=== PATIENT | female | born 1935 | race Caucasian/White ===

== ENCOUNTER 2022-03-09 06:34 | Day surgery (SDC) | payer MEDICARE, OTHER ==
[~2022-03-09] VITALS: Ht 170 cm; Wt 106.0 kg
[~2022-03-09 06:34] MED LIST: AMLODIPINE BESY10 MG PO; CARDURA2 MG PO; CHLORTHALIDONE25 MG PO; COLESTIPOL HCL1 GM PO; HUMALOG 75100 UNIT/M SC; LEVOTHYROXINE100 MCG PO; METOPROLOL SUC100 MG PO; TRAMADOL HCL50 MG PO; VITAMIN D3125 MCG PO
[2022-03-09] MEDS ORDERED: DULCOLAX5 MG PO (14:51)
[2022-03-09] MEDS ORDERED: LAXATIVE SUPPOS10 MG PR (14:51)
[2022-03-09] MEDS ORDERED: TAB-A-VITE TA400 MC1 PO (14:51)
[2022-03-09] MEDS ORDERED: SENNOSIDES-DOC1 EACH PO (14:51)
[2022-03-09] MEDS ORDERED: XARELTO10 MG PO (14:51)
[2022-03-09] MEDS ORDERED: FEOSOL325 MG PO (14:51)
[2022-03-09] MEDS ORDERED: MILK OF MA400 MG/5 M PO (14:51)
[2022-03-09] MEDS ORDERED: PANTOPRAZOLE SO40 MG PO (14:51)
[2022-03-10 06:26] LABS: BASOPHIL 0.1 % (0-2); EOSINOPHIL 0 % (0-7); HCT 28.2 % (37.0-47.0); HGB 9.2 g/dl (12.5-16.0); LYMPHOCYTE 8.1 % (15-48); MCH 30.6 pg (25.0-31.0); MCHC 32.6 g/dL (32.0-36.0); MCV 93.7 fL (78.0-100.0); MONOCYTE 9.2 % (0-12); MPV 10.5 fL (6.0-9.5); NEUTROPHIL 81.9 % (41-80); NRBC 0; PLT 260 K/uL (150-400); RBC 3.01 M/uL (4.20-5.40); RDW 13.7 % (11.5-14.0); WBC 9.2 K/uL (4.0-10.5)
[2022-03-10 06:54] LABS: BUN/CREAT RATIO (CALC) 32.9 RATIO; CREATININE 0.82 mg/dL (0.51-0.95); POTASSIUM 4.2 mmol/L (3.5-5.1)
[2022-03-10] MEDS ORDERED: NORCO 5-325 TA1 EACH PO (08:57)
== END 2022-03-10 14:49 ==
LOC: FAS 06:34 → FMS 10:57 → FAS 03-10 14:49
PROVIDERS: Legal Medicine
DX: M17.11 Unilateral primary osteoarthritis, right knee (principal); G89.18 Other acute postprocedural pain; M21.162 Varus deformity, not elsewhere classified, left knee; M21.161 Varus deformity, not elsewhere classified, right knee; E11.9 Type 2 diabetes mellitus without complications; I10 Essential (primary) hypertension; R60.0 Localized edema; Z96.641 Presence of right artificial hip joint; Z88.1 Allergy status to other antibiotic agents; Z88.5 Allergy status to narcotic agent; Z88.2 Allergy status to sulfonamides; Z79.4 Long term (current) use of insulin
CPT/HCPCS: 36415; 73560; 80048; 85025; 86850; 86900; 86901; 94010; 94762; 97110; 97162; 97530-GP; C1713; C1776; J0171; J0735; J1100; J1815; J1885; J2250; J2405; J2704; J2795; J3010; J7120

== ENCOUNTER 2022-03-12 13:11 | Emergency (ER) | payer MEDICARE ==
[~2022-03-12 13:11] MED LIST changes: +DULCOLAX5 MG PO; +FEOSOL325 MG PO; +LAXATIVE SUPPOS10 MG PR; +MILK OF MA400 MG/5 M PO; +NORCO 5-325 TA1 EACH PO; +PANTOPRAZOLE SO40 MG PO; +SENNOSIDES-DOC1 EACH PO; +TAB-A-VITE TA400 MC1 PO; +XARELTO10 MG PO
[2022-03-12 14:04] LABS: BASOPHIL 0.3 % (0-2); EOSINOPHIL 0.5 % (0-7); HGB 9.5 g/dl (12.5-16.0); LYMPHOCYTE 8.2 % (15-48); MCH 30.7 pg (25.0-31.0); MCHC 32.8 g/dL (32.0-36.0); MCV 93.9 fL (78.0-100.0); MONOCYTE 11.8 % (0-12); MPV 10.4 fL (6.0-9.5); NEUTROPHIL 78.7 % (41-80); NRBC 0; PLT 267 K/uL (150-400); RBC 3.09 M/uL (4.20-5.40); RDW 13.9 % (11.5-14.0)
[2022-03-12 14:19] LABS: BILIRUBIN NEGATIVE (NEGATIVE); BLOOD 1+ Ery/uL (NEGATIVE); CLARITY CLEAR (CLEAR); COLOR YELLOW (YELLOW); GLUCOSE (U) 1+ mg/dL (NORMAL); LEUKOCYTES NEGATIVE Leu/uL (NEGATIVE); NITRITE NEGATIVE (NEGATIVE); PROTEIN NEGATIVE (NEGATIVE); SPECIFIC GRAVITY 1.015 (1.001-1.030); UROBILINOGEN 0.2 mg/dL (0.2-1.0)
[2022-03-12 14:25] LABS: BILIRUBIN - TOTAL 0.6 mg/dL (0.2-1.0); BUN/CREAT RATIO (CALC) 27.3 RATIO; CREATININE 0.99 mg/dL (0.51-0.95); GLOBULIN (CALCULATION) 4.4 g/dL; POTASSIUM 4.2 mmol/L (3.5-5.1); TOTAL PROTEIN 7.4 g/dL (6.4-8.2)
[2022-03-12 14:36] LABS: BACTERIA TRACE; URINARY RBC RARE; URINARY WBC RARE
== END 2022-03-12 18:51 | disposition home or self-care (01) ==
LOC: FER 13:11
PROVIDERS: Emergency Medicine
DX: R41.0 Disorientation, unspecified (principal); E11.9 Type 2 diabetes mellitus without complications; Z79.4 Long term (current) use of insulin
CPT/HCPCS: 36415; 70450; 80053; 81001; 85025